=== PATIENT | female | born 1965 | race Caucasian/White ===

== ENCOUNTER 2023-06-04 11:38 | Outpatient (CLI) | payer OTHER ==
--- NOTE | 2023-06-04 14:50 | XRAY Report ---
PROCEDURE: Ankle 3 View RT INDICATIONS: SPRAIN OF OTHER LIGAMENT OF RIGHT ANKLE INITIAL TECHNIQUE: 3 views of the ankle were acquired. COMPARISON: None. FINDINGS: Bones: No fractures or dislocations. Ankle mortise is normally aligned. No suspicious bony lesions . Soft tissues: No tibiotalar joint effusion. Achilles tendon appears normal. IMPRESSION: No visualized acute fracture or dislocation. However, occult injury cannot be excluded. Recommend vinicio rt interval imaging follow-up in 7-10 days as clinically indicated for additional evaluation. Reviewed by: Cayla Reza MD on 06/04/2023 2:48 PM PDT Approved by: Cayla Reza MD on 06/04/2023 2:48 PM PDT Station ID: [id number]
--- NOTE | 2023-06-04 15:15 | XRAY Report ---
PROCEDURE: Sacrum/Coccyx INDICATIONS: SPRAIN OF OTHER LIGAMENT OF RIGHT ANKLE INITIAL TECHNIQUE: 2 views of the sacrum and coccyx acquired. COMPARISON: None. FINDINGS: Bones: No fractures or dislocations. No suspicious bony lesions. Degenerative changes are present within the lower lumbar spine. Soft tissues: Visualized bowel gas pattern is normal. No suspicious soft tissue densities. IMPRESSION: No visualized acute fracture or dislocation. However, occult injury cannot be excluded. Recommend vinicio rt interval imaging follow-up in 7-10 days as clinically indicated for additional evaluation. Reviewed by: Cayla Reza MD on 06/04/2023 3:13 PM PDT Approved by: Cayla Reza MD on 06/04/2023 3:13 PM PDT Station ID: [id number]
== END 2023-06-04 11:39 | disposition home or self-care (01) ==
LOC: DI 11:38
PROVIDERS: ATTEND Family Medicine
DX: S30.0XXA Contusion of lower back and pelvis, initial encounter (principal); S93.491A Sprain of other ligament of right ankle, initial encounter